=== PATIENT | female | born 1975 | race Hispanic/Latino ===

== ENCOUNTER 2019-09-08 11:34 | Emergency (ER) | payer OTHER ==
[2019-09-08 12:53] LABS: BASOPHILS % (AUTO) 0.3 % (0.0-5.0); HEMATOCRIT 42.8 % (36-48); LYMPHOCYTES % (AUTO) 15.2 % (21.0-51.0); MEAN CORPUSCULAR HEMOGLOBIN 29.7 pg (27.0-33.0); MEAN CORPUSCULAR HGB CONC 33.4 g/dL (32.0-36.0); MEAN CORPUSCULAR VOLUME 88.8 fL (79-99); MONOCYTES % (AUTO) 6.3 % (3.0-13.0); NEUTROPHILS % (AUTO) 76.9 % (40.0-77.0); PLATELET COUNT (AUTO) 360 K/uL (130-400); RED BLOOD CELL COUNT(AUTO) 4.82 MIL/uL (4.00-5.50); WHITE BLOOD COUNT (AUTO) 11.6 K/uL (4.8-10.8)
[2019-09-08 13:00] LABS: CREATININE 0.7 mg/dL (0.5-1.5); POTASSIUM 4.2 mmol/L (3.5-5.1)
[2019-09-08] MEDS ORDERED: LIDOCAINE HCL-MPF 1% 2ML VIAL ONE (13:38)
[2019-09-08] MEDS ORDERED: CEFTRIAXONE SODIUM 1 GM ONE (13:39)
== END 2019-09-08 15:18 | disposition home or self-care (01) ==
LOC: EDH 11:34
DX: L03.012 Cellulitis of left finger (principal); Z90.49 Acquired absence of other specified parts of digestive tract; Z72.0 Tobacco use
CPT/HCPCS: 36415; 73140; 80048; 81025; 85025; 96372; 99285; J0696; J3490

== ENCOUNTER 2019-10-09 17:40 | Emergency (ER) | payer SELFPAY | END 2019-10-09 19:25 | disposition home or self-care (01) | LOC: EDH 17:40 | DX: S60.451A Superficial foreign body of left index finger, initial encounter (principal); Z90.49 Acquired absence of other specified parts of digestive tract; Z98.890 Other specified postprocedural states; Z72.0 Tobacco use; X58.XXXA Exposure to other specified factors, initial encounter; Y93.89 Activity, other specified; Y92.89 Other specified places as the place of occurrence of the external cause; Y99.8 Other external cause status | CPT/HCPCS: 10120; 73140 ==